=== PATIENT | male | born 1970 | race Caucasian/White ===

== ENCOUNTER → 2021-12-05 | Outpatient (CLI) | payer BC ==
[~2021-12-05] MED LIST: ASPIRIN 325MG325 MG PO; BRILINTA90 MG PO; COZAAR 50MG TAB50 MG PO; ECOTRIN81 MG PO; FARXIGA10 MG PO; IMDUR ER TAB 3030 MG PO; JANUVIA 100 MG100 MG PO; LEVAQUIN750 MG PO; LIPITOR TAB 2020 MG PO; LOPRESSOR 25 MG25 MG PO; NITROGLYCER; NITROGLYCERN; NITROSTAT0.4 MG SL; PLAVIX 75 MG TA75 MG PO; SIMVASTATIN40 MG PO; VITAMIN C 500500 MG PO; imdur
== END ==
LOC: HEART 5 07:39
DX: I25.10 Atherosclerotic heart disease of native coronary artery without angina pectoris (principal); I49.8 Other specified cardiac arrhythmias; E11.9 Type 2 diabetes mellitus without complications; I07.1 Rheumatic tricuspid insufficiency; I27.20 Pulmonary hypertension, unspecified
CPT/HCPCS: 78452; 93306; A9502; J2785